=== PATIENT | male | born 1955 | race Caucasian/White ===

== ENCOUNTER 2020-09-04 15:17 | Inpatient (IN) | payer BC, MEDICARE ==
[~2020-09-04] VITALS: Ht 177.8 cm; Wt 107.3 kg
[2020-09-04 15:52] LABS: EOSINOPHILS % (AUTO) 0.4 % (0.0-8.0); HEMATOCRIT 47.6 % (42-54); LYMPHOCYTES % (AUTO) 18.1 % (21.0-51.0); MEAN CORPUSCULAR HEMOGLOBIN 29.3 pg (27.0-33.0); NEUTROPHILS % (AUTO) 64.3 % (40.0-77.0); PLATELET COUNT (AUTO) 202 K/uL (130-400); RED BLOOD CELL COUNT(AUTO) 5.35 MIL/uL (4.50-6.20); RED CELL DISTRIBUTION WIDTH 14.5 % (11.0-15.5); WHITE BLOOD COUNT (AUTO) 5.1 K/uL (4.8-10.8)
[2020-09-04 16:06] LABS: CREATININE 1.1 mg/dL (0.5-1.5); INR 1.03 (0.85-1.15); POTASSIUM 3.9 mmol/L (3.5-5.1)
[2020-09-04 16:07] LABS: PARTIAL THROMBOPLASTIN TIME 28.1 SEC (26.3-35.5)
[2020-09-04 16:11] LABS: ALBUMIN 3.4 g/dL (3.5-5.0); BILIRUBIN,TOTAL 0.3 mg/dL (0.2-1.0); TOTAL PROTEIN, SERUM 6.5 g/dL (6.0-8.3)
[2020-09-04 16:12] LABS: B-TYPE NATRIURETIC PEPTIDE 13 pg/mL (0-100)
[2020-09-04 16:23] LABS: RAPID GROUP A STREP NEGATIVE (NEGATIVE)
[2020-09-04 16:31] LABS: APPEARANCE,URINE Clear (CLEAR); BILIRUBIN,URINE Negative (NEGATIVE); COLOR,URINE Yellow (YELLOW); GLUCOSE, URINE (UA) Negative (NEGATIVE); KETONES,URINE Trace mg/dL (NEGATIVE); LEUKOCYTE ESTERASE ,URINE Negative (NEGATIVE); NITRATE,URINE Negative (NEGATIVE); OCCULT BLOOD,URINE Negative (NEGATIVE); PROTEIN,URINE Negative (NEGATIVE)
[2020-09-04] MEDS ORDERED: ALBUTEROL INHALER 90MCG/INH IH ONE (16:55)
[2020-09-04] MEDS ORDERED: DEXAMETHASONE SOD PHOSPHATE 10MG/ML 1ML VIAL ONE (16:55)
[2020-09-04] MEDS ORDERED: CEFTRIAXONE SODIUM 1 GM ONE (16:56)
[2020-09-04] MEDS ORDERED: AZITHROMYCIN 500MG+NS 250ML 250 ML IV ONE (16:56)
[2020-09-04 17:06] LABS: ABG BASE EXCESS -0.6 mmol/L (-2.0-3.0); ABG HCO3 23.7 mmol/L (21.0-28.0); ABG OXYGEN SATURATION 95.1 % (95.0-99.0); ABG PCO2 38 mmHg (35-48)
[2020-09-04] MEDS ORDERED: CEFTRIAXONE SODIUM 1 GM IV SCH (18:45)
[2020-09-04] MEDS ORDERED: PHARMACY COMMUNICATION***REMDESIVIR ORDER MISC SCH (18:45)
[2020-09-04] MEDS ORDERED: DEXAMETHASONE SOD PHOSPHATE 4 MG/ML 1ML VIAL IVP SCH (18:45)
[2020-09-04] MEDS ORDERED: ERGOCALCIFEROL (VITAMIN D2) 50,000 UNIT CAPSULE PO ONE (18:45)
[2020-09-04] MEDS ORDERED: ONDANSETRON HCL 4 MG/2 ML VIAL IV PRN (18:45)
[2020-09-04] MEDS ORDERED: LACTULOSE 20 GM/30 ML UDCUP PO PRN (18:45)
[2020-09-04] MEDS ORDERED: ACETAMINOPHEN 325 MG TAB PO PRN ×2 (18:45)
[2020-09-04] MEDS ORDERED: ALBUTEROL INHALER 90MCG/INH IH PRN (18:45)
[2020-09-04] MEDS ORDERED: AZITHROMYCIN 500MG+NS 250ML 250 ML IV SCH (18:45)
[2020-09-04] MEDS ORDERED: FAMOTIDINE 20MG TAB 20 MG TAB ONE (20:46)
[2020-09-04] MEDS ORDERED: ERGOCALCIFEROL (VITAMIN D2) 50,000 UNIT CAPSULE ONE (20:46)
[2020-09-04] MEDS: FAMOTIDINE 20MG TAB 20 MG TAB PO SCH (21:00)
[2020-09-04 21:47] VITALS: BP 148/81
[2020-09-04] MEDS ORDERED: VALS1TAB76 PO (22:00)
[2020-09-04] MEDS ORDERED: DIVA-78 PO (22:05)
[2020-09-04] MEDS ORDERED: VERE240SR PO (22:08)
[2020-09-04] MEDS ORDERED: MONT10TA96 PO (22:09)
[2020-09-05 00:04] VITALS: BP 132/81
[2020-09-05] MEDS ORDERED: SODIUM CHLORIDE 0.9% 250 ML IV ONE (02:40)
[2020-09-05 04:00] VITALS: BP 125/75
[2020-09-05 04:51] LABS: BASOPHILS % (AUTO) 0.3 % (0.0-5.0); HEMATOCRIT 44.4 % (42-54); LYMPHOCYTES % (AUTO) 18.4 % (21.0-51.0); MEAN CORPUSCULAR HEMOGLOBIN 29.7 pg (27.0-33.0); MEAN CORPUSCULAR HGB CONC 33.6 g/dL (32.0-36.0); MEAN CORPUSCULAR VOLUME 88.6 fL (79-99); MONOCYTES % (AUTO) 4.8 % (3.0-13.0); NEUTROPHILS % (AUTO) 76.2 % (40.0-77.0); PLATELET COUNT (AUTO) 207 K/uL (130-400); RED BLOOD CELL COUNT(AUTO) 5.01 MIL/uL (4.50-6.20); RED CELL DISTRIBUTION WIDTH 14.4 % (11.0-15.5); WHITE BLOOD COUNT (AUTO) 3.9 K/uL (4.8-10.8)
[2020-09-05 05:06] VITALS: BP 124/74
[2020-09-05 05:15] LABS: ALBUMIN 3.2 g/dL (3.5-5.0); BILIRUBIN,TOTAL 0.2 mg/dL (0.2-1.0); CREATININE 1.2 mg/dL (0.5-1.5); CRP QUANTITATIVE 8.2 mg/L (0.00-9.0); POTASSIUM 4.4 mmol/L (3.5-5.1); TOTAL PROTEIN, SERUM 6.3 g/dL (6.0-8.3)
[2020-09-05] MEDS ORDERED: REMDESIVIR (EUA) 520 200 MG in SODIUM CHLORIDE 0.9% 250 ML IV ONE (07:30)
[2020-09-05] MEDS ORDERED: COMPOUND IV REFRIGERATED 1 EACH IVSOLN MISC PRN (07:30)
[2020-09-05 08:30] VITALS: BP 120/79
[2020-09-05] MEDS: FAMOTIDINE 20MG TAB 20 MG TAB PO SCH (08:43)
[2020-09-05] MEDS ORDERED: ENOXAPARIN SODIUM 40 MG/0.4 ML SYRINGE SQ SCH (09:00)
[2020-09-05] MEDS ORDERED: ASCORBIC ACID 500 MG TAB PO SCH (09:00)
[2020-09-05] MEDS ORDERED: HYDROCHLOROTHIAZIDE 25 MG TABLET PO SCH (09:00)
[2020-09-05] MEDS ORDERED: LOSARTAN 100 MG TABLET PO SCH (09:00)
[2020-09-05] MEDS ORDERED: DIVALPROEX SODIUM 250 MG TABLET.DR PO SCH (09:00)
[2020-09-05] MEDS ORDERED: VERAPAMIL HCL 240 MG SRTAB PO SCH (09:00)
[2020-09-05] MEDS ORDERED: ZINC SULFATE 220 CAPSULE PO SCH (09:00)
[2020-09-05] MEDS ORDERED: SODIUM CHLORIDE 0.9% 50 ML IV ONE (10:22)
[2020-09-05 13:07] VITALS: BP 132/75
[2020-09-05 13:50] VITALS: BP 132/75
[2020-09-05] MEDS ORDERED: DIVA-78 PO (15:42)
[2020-09-05] MEDS ORDERED: MONT10TA96 PO (15:42)
[2020-09-05] MEDS ORDERED: VERE240SR PO (15:42)
[2020-09-05] MEDS ORDERED: VALS1TAB76 PO (15:42)
[2020-09-05] MEDS ORDERED: MONTELUKAST SODIUM 10 MG TAB PO SCH (21:00)
[2020-09-06] MEDS ORDERED: PHARMACY COMMUNICATION MISC SCH (06:00)
[2020-09-06] MEDS ORDERED: REMDESIVIR (EUA) 520 100 MG in SODIUM CHLORIDE 0.9% 250 ML IV SCH (13:00)
== END 2020-09-05 16:30 | disposition home or self-care (01) | DRG 177 ==
LOC: EDH 15:17 → EDHIP 18:43 → EEVIPCON 18:43 → 2AH 21:18
PROVIDERS: ADMIT Hospitalist; ATTEND Hospitalist
PROC: XW13325 Transfusion of Convalescent Plasma (Nonautologous) into Peripheral Vein, Percutaneous Approach, New Technology Group 5 (ICD-10-PCS; principal; 2020-09-05)
PROC: XW033E5 Introduction of Remdesivir Anti-infective into Peripheral Vein, Percutaneous Approach, New Technology Group 5 (ICD-10-PCS; 2020-09-05)
DX: U07.1 COVID-19 (principal); J12.89 Other viral pneumonia; J96.01 Acute respiratory failure with hypoxia; I10 Essential (primary) hypertension; E78.5 Hyperlipidemia, unspecified; J45.909 Unspecified asthma, uncomplicated; G43.909 Migraine, unspecified, not intractable, without status migrainosus; G47.33 Obstructive sleep apnea (adult) (pediatric); Z82.49 Family history of ischemic heart disease and other diseases of the circulatory system
CPT/HCPCS: 36415; 36430; 36600; 71045; 80053; 81003; 82728; 82803; 83605; 83615; 83880; 84145; 84484; 85025; 85378; 85610; 85730; 86140; 86900; 86901; 86927; 87040; 87426; 87804; 87880; 93005; G0378; J0456; J0696; J1100; J1650; J7050